=== PATIENT | male | born 1955 | race Asian ===

== ENCOUNTER 2022-12-08 12:51 | Emergency (ER) | payer MEDICAID ==
[~2022-12-08] VITALS: Ht 172.7 cm; Wt 75.0 kg
[2022-12-08 13:10] VITALS: BP 135/66
[2022-12-08] MEDS ORDERED: ACETAMINOPHEN 325MG TABLET PO ONE (15:15)
[2022-12-08] MEDS ORDERED: LORAZEPAM 2MG/ML CPJ IV ONE (15:15)
[2022-12-08] MEDS ORDERED: MECLIZINE 12.5MG TABLET PO NR (16:15)
[2022-12-08 16:24] LABS: *AMPHETAMINES SCREEN URINE NEGATIVE (NEGATIVE); *BARBITURATES SCREEN URINE NEGATIVE (NEGATIVE); *BENZODIAZEPINES SCREEN URINE NEGATIVE (NEGATIVE); *COCAINE SCREEN URINE NEGATIVE (NEGATIVE); CANNABINOID URINE SCREEN NEGATIVE (NEGATIVE); METHADONE URINE SCREEN NEGATIVE (NEGATIVE); OPIATES URINE SCREEN NEGATIVE (NEGATIVE); PHENCYCLIDINE URINE SCREEN NEGATIVE (NEGATIVE)
[2022-12-08 16:45] LABS: CHLORIDE 105 mEq/L (98-107)
[2022-12-08 16:52] LABS: BASOPHILS % 0.6 % (0.0-2.0); EOSINOPHILS % 2.7 % (0.0-5.0); HEMATOCRIT. 46.7 % (42.0-52.0); HEMOGLOBIN. 15.6 g/dL (14.0-18.0); LYMPHOCYTES % 19.7 % (20.0-50.0); MEAN CORPUSCULAR HEMOGLOBIN 29.6 pg (28.0-32.0); MEAN CORPUSCULAR VOLUME 88.5 fL (80.0-94.0); MEAN PLATELET VOLUME 10.2 fl (7.4-10.4); MONOCYTES % 8.7 % (2.0-8.0); NEUTROPHILS % 68.3 % (40.0-76.0); PLATELET 208 x1000/uL (130-400); RED BLOOD CELL COUNT 5.28 mill/uL (4.7-6.1); RED CELL DISTRIBUTION WIDTH 15.3 % (11.6-14.6)
[2022-12-08 16:55] LABS: ETHANOL BLOOD < 10 mg/dL
[2022-12-08 17:48] LABS: CLARITY URINE CLEAR (CLEAR); COLOR URINE YELLOW (YELLOW); KETONES URINE NEGATIVE (NEGATIVE); LEUKOCYTE ESTERASE URINE NEGATIVE (NEGATIVE); NITRITE URINE NEGATIVE (NEGATIVE); OCCULT BLOOD URINE 2+ (NEGATIVE); PROTEIN URINE NEGATIVE (NEGATIVE); SPECIFIC GRAVITY URINE 1.017 (1.005-1.030); UROBILINOGEN URINE 0.2 E.U./dL (0.2-1.0)
[2022-12-10] MEDS ORDERED: LIP40 PO (15:32)
[2022-12-10] MEDS ORDERED: ASPI-1406 PO (15:32)
== END 2022-12-08 18:34 | disposition left against medical advice (07) ==
LOC: ER 12:51 → EDBD 12:51 → ER 18:34
DX: R00.1 Bradycardia, unspecified (principal); R42 Dizziness and giddiness; Z87.442 Personal history of urinary calculi
CPT/HCPCS: 36415; 71045; 80053; 80305; 80320; 81003; 82962; 83880; 84484; 85025; 86850; 86900; 86901; 93005; 96374; 99285; J2060; J8597; Z7610; G0480

== ENCOUNTER 2024-04-16 11:43 | Emergency (ER) | payer SELFPAY ==
[~2024-04-16] VITALS: Ht 180.3 cm; Wt 72.6 kg
[~2024-04-16 11:43] MED LIST: ASPI-1406 PO; LIP40 PO
[2024-04-16 11:56] VITALS: BP 104/48; PULSE 59; RESP 16; TEMP 98.1; O2SAT 100
[2024-04-16 12:20] LABS: EOSINOPHILS % 3.5 % (0.0-5.0); HEMATOCRIT. 39.8 % (42.0-52.0); LYMPHOCYTES % 29.8 % (20.0-50.0); MEAN CORPUSCULAR HEMOGLOBIN 29.4 pg (28.0-32.0); MEAN CORPUSCULAR HGB CONC 32.5 g/dL (31.0-37.0); MEAN CORPUSCULAR VOLUME 90.3 fL (80.0-94.0); MEAN PLATELET VOLUME 10.3 fl (7.4-10.4); MONOCYTES % 8.4 % (2.0-8.0); NEUTROPHILS % 57.3 % (40.0-76.0); PLATELET 202 x1000/uL (130-400); RED BLOOD CELL COUNT 4.41 mill/uL (4.7-6.1); RED CELL DISTRIBUTION WIDTH 15.5 % (11.6-14.6)
[2024-04-16 13:00] LABS: CARBON DIOXIDE 26 mEq/L (21-32); CHLORIDE 104 mEq/L (98-107); POTASSIUM 4.3 mEq/L (3.5-5.1); SODIUM 136 mEq/L (136-145)
[2024-04-16 13:01] LABS: CALCIUM 9.3 mg/dL (8.7-10.4)
[2024-04-16 13:06] LABS: CREATININE 1.5 mg/dL (0.6-1.3); GLUCOSE 98 mg/dL (70-105); UREA NITROGEN BLOOD 23 mg/dL (9-23)
[2024-04-16 13:08] LABS: TROPONIN I HIGH SENSITIVITY < 4 ng/L (3.0-53)
== END 2024-04-16 15:15 | disposition home or self-care (01) ==
LOC: ER 14:17
DX: R42 Dizziness and giddiness (principal); E78.00 Pure hypercholesterolemia, unspecified; I10 Essential (primary) hypertension; E03.9 Hypothyroidism, unspecified; Z87.442 Personal history of urinary calculi
CPT/HCPCS: 36415; 80048; 84484; 85025; 93005; 99284

== ENCOUNTER 2025-02-11 12:30 | Emergency (ER) | payer MEDICAID ==
[~2025-02-11] VITALS: Ht 177.8 cm; Wt 78.0 kg
[2025-02-11 12:41] VITALS: O2SAT 100
[2025-02-11 13:10] LABS: BASOPHILS % 0.3 % (0.0-2.0); EOSINOPHILS % 0.1 % (0.0-5.0); HEMATOCRIT. 43.6 % (42.0-52.0); HEMOGLOBIN. 13.9 g/dL (14.0-18.0); LYMPHOCYTES % 21.3 % (20.0-50.0); MEAN CORPUSCULAR HEMOGLOBIN 27.7 pg (28.0-32.0); MEAN CORPUSCULAR HGB CONC 31.8 g/dL (31.0-37.0); MEAN CORPUSCULAR VOLUME 87.1 fL (80.0-94.0); MEAN PLATELET VOLUME 9.2 fl (7.4-10.4); MONOCYTES % 6.7 % (2.0-8.0); NEUTROPHILS % 71.6 % (40.0-76.0); PLATELET 169 x1000/uL (130-400); RED BLOOD CELL COUNT 5.01 mill/uL (4.7-6.1); RED CELL DISTRIBUTION WIDTH 17.8 % (11.6-14.6)
[2025-02-11 13:12] LABS: POTASSIUM 4.3 mEq/L (3.5-5.1)
[2025-02-11 13:18] LABS: CREATININE 1.7 mg/dL (0.6-1.3)
[2025-02-11] MEDS: MECLIZINE 25MG TABLET PO ONE (14:57)
[2025-02-11 14:59] LABS: CLARITY URINE CLOUDY (CLEAR); COLOR URINE ORANGE (YELLOW); GLUCOSE URINE NEGATIVE (NEGATIVE); KETONES URINE NEGATIVE (NEGATIVE); OCCULT BLOOD URINE 3+ (NEGATIVE); PH URINE 6.5 (4.5-8.0); PROTEIN URINE 1+ (NEGATIVE); SPECIFIC GRAVITY URINE 1.024 (1.005-1.030)
[2025-02-11 15:00] LABS: LEUKOCYTE ESTERASE URINE 2+ (NEGATIVE); NITRITE URINE NEGATIVE (NEGATIVE)
[2025-02-11 15:02] LABS: BACTERIA URINE NONE SEEN; RBC URINE TNTC /hpf (0-2); SQUAMOUS EPITHELIAL CELL URINE RARE /lpf (RARE/1+); YEAST URINE NONE SEEN
[2025-02-11 15:29] LABS: TROPONIN I HIGH SENSITIVITY 8 ng/L (3.0-53)
[2025-02-11] MEDS ORDERED: CEPH500C2 MT (15:33)
[2025-02-11] MEDS: CEFTRIAXONE 1GM/50ML 50 ML IV ONE (15:46)
[2025-02-11 15:56] VITALS: BP 157/80; PULSE 48; RESP 18; TEMP 36.6; O2SAT 100
== END 2025-02-11 15:58 | disposition home or self-care (01) ==
LOC: ER 12:30
DX: N39.0 Urinary tract infection, site not specified (principal); R42 Dizziness and giddiness; E03.9 Hypothyroidism, unspecified; I10 Essential (primary) hypertension; Z79.82 Long term (current) use of aspirin; Z79.899 Other long term (current) drug therapy
CPT/HCPCS: 80048; 81003; 85025; 84484; 36415; 93005; 96365; 99284; J8597; J0696; Z7610 ×2